=== PATIENT | female | born 1995 | race Caucasian/White ===

== ENCOUNTER 2016-06-16 22:24 | Emergency (ER) | payer BC ==
[2016-06-16 22:31] VITALS: BP 117/64; BMI 22.3
--- NOTE | 2016-06-17 00:34 | ED.ABDFE ---
HPI - Time seen Time seen: 00:28 - PCP Primary Care Physician: NFD - Complaint Chief Complaint:: PT C/O LOWER ABD PAIN. PT STATES SHE IS ON HER MENSTRUAL CYCLE BUT THE PAIN IS WORSE THAN NORMAL. PT'S LAST BM WAS WEDNESDAY. - Nurses notes reviewed Nurses Notes Review: Yes - Source History Provided: Patient - Mode of arrival Mode of Arrival: Ambulatory - Timing Onset of Chief Complaint: 06/16/16 Came on: Gradually - Duration Duration: Intermittent How lon Duration: Hours - Location Location: [facility] - Severity Severity: Moderate - Quality Quality: Sharp - Context Onset: Gradually - Modifying Worsening Factors: Nothing Improving Factors: Nothing - Associated signs and symptoms Associated Signs and Symptoms: Vaginal Bleeding (menses started yesterday) PMH - PMH Past Medical History: No Past Surgical History: No - Family History History of Family Medical Conditions: No - Social History Type of Tobacco Use: Cigarettes Alcohol Use: None Do you use any recreational Drugs:: No Lives With: Significant Other Lives Where: Home - infectious screening In the last 2 months have you had wt loss of >10#?: NO Have you had fever, night sweats or hemotysis?: No Have you traveled outside the country in the last 6 months?: No Isolation: Standard ROS - Review of Systems Constitutional: No Symptoms Reported Eyes: No Symptoms Reported ENTM: No Symptoms Reported Respiratoy: No Symptoms Reported Cardiovascular: No Symptoms Reported Gastrointestinal/Abdominal: No Symptoms Reported Genitourinary: Pain (mild pain with menses, this is worse), Bleeding Neurological: No Symptoms Reported Musculoskeletal: No Symptoms Reported Integumentary: No Symptoms Reported Hematologic/Lymphatic: No Symptoms Reported Endocrine: No Symptoms Reported Psychiatric: No Symptoms Reported PE - Vital Signs Vitals: Temperature 98.1 F Pulse Rate 98 Respiratory Rate 20 Blood Pressure 117/64 O2 Sat by Pulse Oximetry 81 - General Limitations: No Limitations General Appearance: Alert, In No Apparent Distress - Head Head Exam: Normal Inspection - Eyes Eye exam: Normal Appearance, EOMI. negative: Scleral Icterus, Conjunctival Injection - Neck Neck Exam: Normal Inspection, Full ROM, Trachea Midline - Respiratory Respiratory Exam: negative: Accessory Muscle Use, Respiratory Distress - Abdominal Exam Abdominal Exam: Normal Inspection, Normal Bowel Sounds, Soft, Tenderness (both lower quadrants with pain mild, no guarding). negative: Distention, Guarding Abdominal Tenderness: RLQ, LLQ - Back Back Exam: Normal Inspection - Extremeties Extremities Exam: Normal Inspection, Full ROM - Neurologic Neurological Exam: Alert, Oriented X3, CN II-XII Intact - Psychiatric Psychiatric Exam: Depressed - Skin Skin Exam: Intact, Normal Color ROR - Labs Reviewed Result Diagrams: 06/17/16 00:50 Laboratory: WBC 12.3 X10^3/uL (3.6-10.0) H 06/17/16 00:50 RBC 4.31 X10^6/uL (3.5-5.4) 06/17/16 00:50 Hgb 11.1 g/dL (12.0-16.0) L 06/17/16 00:50 Hct 34.9 % (36.0-47.0) L 06/17/16 00:50 MCV 81.0 fL (80.0-100.0) 06/17/16 00:50 MCH 25.8 pg (27.0-34.0) L 06/17/16 00:50 MCHC 31.9 g/dL (33.0-35.0) L 06/17/16 00:50 RDW 15.5 % (11.6-16.5) 06/17/16 00:50 Plt Count 199 X10^3/uL (150.0-450.0) 06/17/16 00:50 MPV 9.3 fL (7.4-11.0) 06/17/16 00:50 Neut % 65.3 % (42.0-75.0) 06/17/16 00:50 Lymph % 20.6 % (21.0-51.0) L 06/17/16 00:50 [place] % 11.6 % (0.0-13.0) 06/17/16 00:50 Eos % 2.2 % (0.9-2.9) 06/17/16 00:50 Baso % 0.3 % (0.2-1.0) 06/17/16 00:50 Neut # 8.0 x10^3/uL (2.2-4.8) H 06/17/16 00:50 Lymph # 2.5 X10^3/uL (1.3-2.9) 06/17/16 00:50 [place] # 1.4 x10^3/uL (0.3-0.8) H 06/17/16 00:50 Eos # 0.3 x10^3/uL (0.0-0.2) H 06/17/16 00:50 Baso # 0.0 X10^3/uL (0.0-0.1) 06/17/16 00:50 Absolute Nucleated RBC 0.0 /100WBC 06/17/16 00:50 HCG, Qual Negative <10 mIU/mL 06/17/16 00:50 Specimen Type Clean catch urine 06/17/16 01:03 Urine Color Bloody (YELLOW) 06/17/16 01:03 Urine Appearance Cloudy (CLEAR) 06/17/16 01:03 Urine pH 6.0 (5.0 - 8.0) 06/17/16 01:03 Ur Specific [place] 1.020 (1.000-1.030) 06/17/16 01:03 Urine Protein 2+ (NEGATIVE) 06/17/16 01:03 Urine Glucose (UA) Negative (NEGATIVE) 06/17/16 01:03 Urine Ketones Negative (NEGATIVE) 06/17/16 01:03 Urine Occult Blood 5+ (NEGATIVE) 06/17/16 01:03 Urine Nitrite Negative (NEGATIVE) 06/17/16 01:03 Urine Bilirubin Negative (NEGATIVE) 06/17/16 01:03 Urine Urobilinogen Normal (NORMAL) 06/17/16 01:03 Ur Leukocyte Esterase 1+ (NEGATIVE) 06/17/16 01:03 Urine RBC 6-8 /HPF (NEGATIVE) 06/17/16 01:03 Urine WBC Tntc /HPF (NEGATIVE) 06/17/16 01:03 Ur Squamous Epith Cells Rare /HPF (NEGATIVE) 06/17/16 01:03 Urine Bacteria 1+ /HPF (NEGATIVE) 06/17/16 01:03 Ur Culture Indicated? Yes/culture set up 06/17/16 01:03 - Diagnosis Discharge Problem: UTI (urinary tract infection) Qualifiers: Urinary tract infection type: acute cystitis Hematuria presence: with hematuria Qualified Code(s): N30.01 - Acute cystitis with hematuria Discharge Problem: (Ruled Out): Menstrual cramps - Discharge Plan Condition: Stable Prescriptions: Tramadol HCl [ULTRAM 50 MG *] 50 mg PO Q8H PRN #21 tab PRN Reason: Pain - Follow ups/Referrals Follow ups/Referrals: NFD,None [Primary Care Provider] - 3 days - Instructions
[2016-06-17] MEDS ORDERED: NORCO 5/325 MG TAB PO ONE (00:41)
[2016-06-17] MEDS ORDERED: NORCO 5/325 MG TAB ONE (00:46)
[2016-06-17 01:01] LABS: BASOPHILS % (AUTO) 0.3 % (0.2-1.0); EOSINOPHILS # (AUTO) 0.3 x10^3/uL (0.0-0.2); EOSINOPHILS % (AUTO) 2.2 % (0.9-2.9); HEMATOCRIT 34.9 % (36.0-47.0); HEMOGLOBIN 11.1 g/dL (12.0-16.0); LYMPHOCYTES # (AUTO) 2.5 X10^3/uL (1.3-2.9); LYMPHOCYTES % (AUTO) 20.6 % (21.0-51.0); MEAN CORPUSCULAR HEMOGLOBIN 25.8 pg (27.0-34.0); MEAN CORPUSCULAR HGB CONC 31.9 g/dL (33.0-35.0); MEAN PLATELET VOLUME 9.3 fL (7.4-11.0); MONOCYTES # (AUTO) 1.4 x10^3/uL (0.3-0.8); MONOCYTES % (AUTO) 11.6 % (0.0-13.0); NEUTROPHILS % (AUTO) 65.3 % (42.0-75.0); PLATELET COUNT 199 X10^3/uL (150.0-450.0); RED BLOOD COUNT 4.31 X10^6/uL (3.5-5.4); RED CELL DISTRIBUTION WIDTH 15.5 % (11.6-16.5); WHITE BLOOD COUNT 12.3 X10^3/uL (3.6-10.0)
[2016-06-17 01:14] LABS: BILIRUBIN,URINE NEGATIVE (NEGATIVE); BLOOD/HEMOGLOBIN,URINE 5+ (NEGATIVE); GLUCOSE, URINE NEGATIVE (NEGATIVE); KETONES,URINE NEGATIVE (NEGATIVE); LEUKOCYTE ESTERASE ,URINE 1+ (NEGATIVE); NITRITES,URINE NEGATIVE (NEGATIVE); PROTEIN,URINE 2+ (NEGATIVE); UROBILINOGEN,URINE NORMAL (NORMAL)
[2016-06-17 01:17] LABS: APPEARANCE,URINE CLOUDY (CLEAR); BACTERIA,URINE 1+ /HPF (NEGATIVE); COLOR,URINE BLOODY (YELLOW); SQUAMOUS EPITHELIAL CELL,UR RARE /HPF (NEGATIVE)
[2016-06-17 01:18] LABS: SERUM PREGNANCY TEST, QUAL NEGATIVE <10 mIU/mL
[2016-06-17 01:28] LABS: HYPOCHROMASIA SLIGHT; PLATELET MORPHOLOGY COMMENT NORMAL (NORMAL)
[2016-06-17] MEDS ORDERED: MACROBID CAP 100 MG EXT REL PO ONE ×2 (01:28→01:36)
== END 2016-06-17 01:38 | disposition home or self-care (01) ==
LOC: ER 22:24
DX: N30.01 Acute cystitis with hematuria (principal)
CPT/HCPCS: 36415; 81001; 84703; 85025; 87086; 99283